=== PATIENT | male | born 1990 | race Caucasian/White ===

== ENCOUNTER 2024-12-23 21:18 | Emergency (ER) | payer BC, SELFPAY ==
[2024-12-23 21:19] VITALS: BP 123/87; PULSE 71; RESP 15; TEMP 36.6; O2SAT 100; BMI 23.6
[2024-12-23 22:57] VITALS: BP 132/79; PULSE 60; RESP 18; O2SAT 100
[2024-12-23 23:00] VITALS: PULSE 62; O2SAT 100
[2024-12-24] VITALS: BP 92/48; PULSE 49; RESP 18; O2SAT 98
[2024-12-24 00:15] VITALS: O2SAT 99
[2024-12-24 01:00] VITALS: O2SAT 98
== END 2024-12-24 01:11 | disposition home or self-care (01) ==
PROVIDERS: Emergency Provider Emergency Medicine; Visit Provider Emergency Medicine
DX: F11.23 Opioid dependence with withdrawal (principal); F17.290 Nicotine dependence, other tobacco product, uncomplicated
CPT/HCPCS: 99282